=== PATIENT | female | born 1955 | race Two or more races ===

== ENCOUNTER 2021-03-13 09:59 | Outpatient (CLI) | payer OTHER | END 2021-03-13 10:07 | disposition home or self-care (01) | LOC: RX STUDY 09:59 | PROVIDERS: ATTEND Urology | DX: N39.41 Urge incontinence (principal); N81.11 Cystocele, midline | CPT/HCPCS: 51600; 74455; Q9958 ==

== ENCOUNTER 2023-11-13 09:05 | Outpatient (CLI) | payer OTHER | END 2023-11-13 09:11 | disposition home or self-care (01) | LOC: RX STUDY 09:05 | PROVIDERS: ATTEND Urology | DX: N81.10 Cystocele, unspecified (principal) | CPT/HCPCS: 74455; Q9965 ==